=== PATIENT | male | born 1950 | race Caucasian/White ===

== ENCOUNTER → 2018-02-19 18:32 | Outpatient (CLI) | payer BC, SELFPAY ==
--- NOTE | 2018-02-19 11:15 | FLU_PTH ---
PATIENT: CONNOR BRYANT LOC: [facility] U#:[id number] AGE/SX: 74/M ROOM: RE02/19/[address]: Dr. Aldo Sellers MD : 1950 BED: DIS: SPEC #: [id number] RECD: 02/19/18 15:30 STATUS: ARGHAVENDRA CHELI #: [id number] VERA: 02/19/18 11:[address]: Aldo Sellers DEPT: CYTOLOGY RECD BY: Cristian Bar Tissues: Urine Procedures: Special Stain Group II Cytospin Fluid HEADER OPERATION: Not noted PRE-OP DIAGNOSIS: UTI R31.21 TISSUE SUBMITTED: Urine for cytology DIAGNOSIS CYTOLOGY Urine for cytology (cytospin): Negative for malignant cells. SJ:zayra 02/21/18 CYTOLOGY STUDY Slides are reviewed. The specimen consists of benign squamous cells, urothelial cells and red blood cells. CYTOLOGY GROSS Received is 13 ml of clear, pale yellow fluid labeled with the patient's name and and designated per the requisition as urine. Submitted for cytology preparation. 02/20/18 TC:5 CPT: 38967
[2018-02-19 18:35] LABS: Cytology, Body Fluid / CSF SEE PATHOLOGY REPORT
== END ==
PROVIDERS: Visit Provider Urology
DX: R31.21 Asymptomatic microscopic hematuria (principal); N39.0 Urinary tract infection, site not specified
CPT/HCPCS: 88108; 88305; 88313

== ENCOUNTER → 2019-03-24 08:55 | Outpatient (CLI) | payer BC, SELFPAY ==
[2019-03-24 10:35] LABS: PSA,Total - Annual Screen 0.66 ng/mL (0.00-4.00)
== END ==
PROVIDERS: Family Provider Family Medicine; PCP Family Medicine; Referring Provider Urology; Visit Provider Urology
DX: Z12.5 Encounter for screening for malignant neoplasm of prostate (principal)
CPT/HCPCS: 36415; 84153; G0103

== ENCOUNTER → 2020-05-17 10:29 | Outpatient (CLI) | payer BC, SELFPAY ==
[2020-05-17 11:49] LABS: PSA,Total - Annual Screen 0.64 ng/mL (0.00-4.00)
== END ==
PROVIDERS: PCP Family Medicine; Referring Provider Urology; Visit Provider Urology
DX: Z12.5 Encounter for screening for malignant neoplasm of prostate (principal)
CPT/HCPCS: 36415; 84153; G0103